=== PATIENT | male | born 1965 | race Native Hawaiian/Other Pacific Islander ===

== ENCOUNTER 2019-08-11 13:32 | Inpatient (IN) | payer OTHER ==
[~2019-08-11] VITALS: Ht 177.8 cm; Wt 73.5 kg
[2019-08-11] MEDS ORDERED: MAGNESIUM SULFATE 2 GM in IV DEXTROSE 5% 100 ML IV ONE (14:00)
[2019-08-11] MEDS ORDERED: MAGNESIUM SULFATE/D5W 200 ML ONE (14:16)
[2019-08-11] MEDS: ALBUTEROL SULFATE 8 GM HFA.AER.AD IH PRN ×3 (14:18→16:38)
[2019-08-11 14:20] LABS: BASOPHILS # (AUTO) 0.1 K/uL (0.0-8.0); BASOPHILS % (AUTO) 1.2 % (0.0-2.0); EOSINOPHILS # (AUTO) 0.5 K/uL (0.0-0.7); EOSINOPHILS % (AUTO) 9.1 % (0.0-7.0); HEMATOCRIT 47.2 % (36.7-47.1); HEMOGLOBIN 15.8 g/dL (12.5-16.3); LYMPHOCYTES # (AUTO) 0.9 K/uL (20.0-40.0); LYMPHOCYTES % (AUTO) 16.1 % (20.5-51.5); MEAN CORPUSCULAR HEMOGLOBIN 31.3 uug (23.8-33.4); MEAN CORPUSCULAR HGB CONC 34 g/dL (32.5-36.3); MEAN CORPUSCULAR VOLUME 93.3 fL (73.0-96.2); MONOCYTES # (AUTO) 0.5 K/uL (2.0-10.0); MONOCYTES % (AUTO) 7.8 % (0.0-11.0); NEUTROPHILS # (AUTO) 3.8 K/uL (1.8-8.9); NEUTROPHILS % (AUTO) 65.8 % (38.5-71.5); PLATELET COUNT (AUTO) 236 K/uL (152-348); RED BLOOD CELL COUNT(AUTO) 5.05 MIL/uL (4.06-5.63); WHITE BLOOD COUNT (AUTO) 5.8 K/uL (3.6-10.2)
[2019-08-11 14:31] LABS: CREATININE 1.2 mg/dL (0.6-1.3)
[2019-08-11 14:37] LABS: POTASSIUM 4.1 mmol/L (3.5-5.1)
[2019-08-11 20:30] VITALS: BP 120/84
[2019-08-11] MEDS ORDERED: ALBUTEROL SULFATE 2.5 MG/3 ML NEBU NEB PRN (20:30)
[2019-08-11] MEDS ORDERED: MORPHINE SULFATE 2 MG/1 ML DISP.SYRIN IV PRN (20:30)
[2019-08-11] MEDS ORDERED: ONDANSETRON 4 MG/2 ML VIAL IV PRN (20:30)
[2019-08-11] MEDS ORDERED: ZOLPIDEM 5 MG TABLET PO PRN (20:30)
[2019-08-11] MEDS ORDERED: ACETAMINOPHEN 325 MG TABLET PO PRN (20:30)
[2019-08-11] MEDS ORDERED: ALBUTEROL SULFATE 8 GM HFA.AER.AD IH PRN (20:54)
[2019-08-11] MEDS: LEVOFLOXACIN 500 MG/D5W 500 MG in PREMIXED 1 EACH IV SCH (21:05)
[2019-08-11] MEDS: methylPREDNISolone SOD SUCC 40 MG/ML VIAL IV SCH (21:57)
[2019-08-12 04:00] VITALS: BP 107/73
[2019-08-12] MEDS: methylPREDNISolone SOD SUCC 40 MG/ML VIAL IV SCH ×3 (05:01→21:30)
[2019-08-12] MEDS: PANTOPRAZOLE SODIUM 40 MG TABLET.DR PO SCH (06:20)
[2019-08-12 06:45] LABS: BASOPHILS % (AUTO) 0.6 % (0.0-2.0); EOSINOPHILS % (AUTO) 0.1 % (0.0-7.0); HEMATOCRIT 48.7 % (36.7-47.1); HEMOGLOBIN 16.4 g/dL (12.5-16.3); LYMPHOCYTES # (AUTO) 0.5 K/uL (20.0-40.0); LYMPHOCYTES % (AUTO) 10.4 % (20.5-51.5); MEAN CORPUSCULAR HEMOGLOBIN 31.4 uug (23.8-33.4); MEAN CORPUSCULAR HGB CONC 34 g/dL (32.5-36.3); MEAN CORPUSCULAR VOLUME 93.4 fL (73.0-96.2); MONOCYTES # (AUTO) 0.1 K/uL (2.0-10.0); NEUTROPHILS # (AUTO) 4.3 K/uL (1.8-8.9); NEUTROPHILS % (AUTO) 87.9 % (38.5-71.5); PLATELET COUNT (AUTO) 258 K/uL (152-348); RED BLOOD CELL COUNT(AUTO) 5.21 MIL/uL (4.06-5.63); WHITE BLOOD COUNT (AUTO) 4.8 K/uL (3.6-10.2)
[2019-08-12 07:13] LABS: BILIRUBIN,TOTAL 0.5 mg/dL (0.2-1.0); CREATININE 1.3 mg/dL (0.6-1.3); MAGNESIUM 2.2 mg/dL (1.8-2.4); PHOSPHOROUS 3.1 mg/dL (2.5-4.9); POTASSIUM 4.5 mmol/L (3.5-5.1); TOTAL PROTEIN, SERUM 7.2 g/dL (6.4-8.2)
[2019-08-12] MEDS: FLUTICASONE/VILANTEROL 1 EACH BLST.W.DEV INH SCH (08:09)
[2019-08-12 12:12] VITALS: BP 121/76
[2019-08-12 16:13] VITALS: BP 142/89
[2019-08-12] MEDS: LEVOFLOXACIN 500 MG/D5W 500 MG in PREMIXED 1 EACH IV SCH (21:30)
[2019-08-12 21:59] VITALS: BP 149/89
[2019-08-13 05:43] VITALS: BP 102/50
[2019-08-13] MEDS: PANTOPRAZOLE SODIUM 40 MG TABLET.DR PO SCH (06:00)
[2019-08-13] MEDS: methylPREDNISolone SOD SUCC 40 MG/ML VIAL IV SCH ×3 (06:00→21:25)
[2019-08-13 06:12] LABS: HEMATOCRIT 44.6 % (36.7-47.1); HEMOGLOBIN 14.7 g/dL (12.5-16.3); LYMPHOCYTES # (AUTO) 0.6 K/uL (20.0-40.0); LYMPHOCYTES % (AUTO) 5.1 % (20.5-51.5); MEAN CORPUSCULAR HGB CONC 33 g/dL (32.5-36.3); MEAN CORPUSCULAR VOLUME 94.3 fL (73.0-96.2); MONOCYTES # (AUTO) 0.3 K/uL (2.0-10.0); MONOCYTES % (AUTO) 2.8 % (0.0-11.0); NEUTROPHILS # (AUTO) 10.6 K/uL (1.8-8.9); NEUTROPHILS % (AUTO) 92.1 % (38.5-71.5); PLATELET COUNT (AUTO) 242 K/uL (152-348); RED BLOOD CELL COUNT(AUTO) 4.73 MIL/uL (4.06-5.63); WHITE BLOOD COUNT (AUTO) 11.5 K/uL (3.6-10.2)
[2019-08-13 06:39] LABS: CREATININE 1.3 mg/dL (0.6-1.3); PHOSPHOROUS 4.1 mg/dL (2.5-4.9); POTASSIUM 4.3 mmol/L (3.5-5.1)
[2019-08-13] MEDS: FLUTICASONE/VILANTEROL 1 EACH BLST.W.DEV INH SCH (08:46)
[2019-08-13] MEDS ORDERED: FLUTICASONE/VILANTEROL 1 EACH BLST.W.DEV INH SCH (10:15)
[2019-08-13 20:00] VITALS: BP 134/87
[2019-08-13] MEDS ORDERED: LEVOFLOXACIN 500 MG TABLET PO SCH (21:00)
[2019-08-13] MEDS ORDERED: ATORVASTATIN 20 MG TABLET PO SCH (21:00)
[2019-08-14 04:22] VITALS: BP 115/68
[2019-08-14] MEDS: PANTOPRAZOLE SODIUM 40 MG TABLET.DR PO SCH (06:29)
[2019-08-14] MEDS: methylPREDNISolone SOD SUCC 40 MG/ML VIAL IV SCH (06:29)
[2019-08-14] MEDS: FLUTICASONE/VILANTEROL 1 EACH BLST.W.DEV INH SCH (08:34)
[2019-08-14 11:36] VITALS: BP 126/75
== END 2019-08-14 14:05 | disposition home or self-care (01) | DRG 202 ==
LOC: ER 13:32 → MEDSURG3 19:41
PROVIDERS: ADMIT Internal Medicine; ATTEND Internal Medicine
DX: J20.8 Acute bronchitis due to other specified organisms (principal); J45.901 Unspecified asthma with (acute) exacerbation; E78.5 Hyperlipidemia, unspecified
CPT/HCPCS: 36415; 71045; 83735; 84100; 85025; 93005; A4663; G0378; J1956; J2920; J3475; J3535; J7050; U0002

== ENCOUNTER 2019-09-01 12:02 | Emergency (ER) | payer OTHER ==
[~2019-09-01] VITALS: Ht 177.8 cm; Wt 73.0 kg
[2019-09-01] MEDS ORDERED: methylPREDNISolone SOD SUCC 125 MG/2 ML VIAL IV ONE (12:45)
[2019-09-01] MEDS ORDERED: levoFLOXacin 500 MG/D5W 100ML PIGGYBACK IV ONE (12:45)
[2019-09-01] MEDS ORDERED: IV NORMAL SALINE 500 ML BAG IV ONE (12:45)
[2019-09-01] MEDS ORDERED: levoFLOXacin 500 MG/D5W 100 ML ONE (13:00)
[2019-09-01] MEDS ORDERED: methylPREDNISolone SOD SUCC 125 MG/2 ML VIAL ONE (13:00)
[2019-09-01 13:02] LABS: BASOPHILS % (AUTO) 1.1 % (0.0-2.0); EOSINOPHILS # (AUTO) 0.4 K/uL (0.0-0.7); EOSINOPHILS % (AUTO) 10.5 % (0.0-7.0); HEMATOCRIT 45.4 % (36.7-47.1); HEMOGLOBIN 15.2 g/dL (12.5-16.3); LYMPHOCYTES # (AUTO) 0.8 K/uL (20.0-40.0); LYMPHOCYTES % (AUTO) 21.2 % (20.5-51.5); MEAN CORPUSCULAR HEMOGLOBIN 31.1 uug (23.8-33.4); MEAN CORPUSCULAR HGB CONC 33 g/dL (32.5-36.3); MEAN CORPUSCULAR VOLUME 93.1 fL (73.0-96.2); MONOCYTES # (AUTO) 0.4 K/uL (2.0-10.0); MONOCYTES % (AUTO) 10.3 % (0.0-11.0); NEUTROPHILS # (AUTO) 2.2 K/uL (1.8-8.9); NEUTROPHILS % (AUTO) 56.9 % (38.5-71.5); PLATELET COUNT (AUTO) 209 K/uL (152-348); RED BLOOD CELL COUNT(AUTO) 4.88 MIL/uL (4.06-5.63); WHITE BLOOD COUNT (AUTO) 3.8 K/uL (3.6-10.2)
[2019-09-01 13:17] LABS: CREATININE 1.3 mg/dL (0.6-1.3)
[2019-09-01 13:31] LABS: BILIRUBIN,DIRECT 0.1 mg/dL (0.0-0.2); BILIRUBIN,TOTAL 0.8 mg/dL (0.2-1.0); TOTAL PROTEIN, SERUM 6.7 g/dL (6.4-8.2)
[2019-09-01 13:35] LABS: FERRITIN 381 ng/mL (26-388); LACTATE DEHYDROGENASE 231 U/L (85-227)
[2019-09-01] MEDS ORDERED: ALBUTEROL SULFATE 2.5 MG/3 ML NEBU NEB ONE (13:45)
[2019-09-01] MEDS ORDERED: IPRATROPIUM BROMIDE 0.5 MG/2.5 ML NEBU NEB ONE (13:45)
[2019-09-01] MEDS ORDERED: IPRATROPIUM BROMIDE 0.5 MG/2.5 ML NEBU ONE (13:50)
[2019-09-01] MEDS ORDERED: ALBUTEROL SULFATE 2.5 MG/ 0.5 ML NEBU ONE (13:51)
--- NOTE | 2019-09-01 14:18 | NUR ---
PT WAS EVALUATED BY DR RAMIREZ. PT WAS D/C'd TO HOME. D/C INSTRUCTIONS GIVEN TO THE PT BY DR RAMIREZ.
[2019-09-01 14:20] VITALS: BP 139/81
== END 2019-09-01 14:21 | disposition home or self-care (01) ==
LOC: ER 12:02
DX: J45.901 Unspecified asthma with (acute) exacerbation (principal); R05 Cough; I51.7 Cardiomegaly; R74.8 Abnormal levels of other serum enzymes
CPT/HCPCS: 36415; 71045; 80048; 80076; 82728; 83615; 83880; 84484; 85025; 87040; 93005; 94640; 96365; 96375; 99285; J1956; J2930; 70030-TC; A4663; J3590; J7030

== ENCOUNTER 2019-09-05 13:23 | Emergency (ER) | payer OTHER ==
[~2019-09-05] VITALS: Ht 177.8 cm; Wt 73.9 kg
[~2019-09-05 13:23] MED LIST: ATOR20TA PO; METH4TAB21 PO; [UNRECOGNIZED DRUG - OTHER]
--- NOTE | 2019-09-05 13:35 | NUR ---
Pt presented to ER c/o SOB due to Asthma attack since this morning. Pt has Hx of asthma and has flare ups during change of weather from cold to hot. Patient is AOx4, speaking in complete sentences. Patient is able to follow /comprehend directions. Gait is stable. No cardiovascular distress noted. Rate and rhythm are regular, mild chest tightness. Wheezing upon auscultation, SOB. PT IN BED AT LOWEST LEVEL W/SIDE RAILS UPX2, CALL LIGHT W/IN REACH,FALL PRECAUTIONS IMPLEMENTED.
--- NOTE | 2019-09-05 13:40 | NUR ---
RESPIRATORY IN ROOM. PT ON NEBULIZER TREATMENT. V/S STABLE.
[2019-09-05] MEDS ORDERED: IPRATROPIUM BROMIDE 0.5 MG/2.5 ML NEBU ONE ×2 (13:43→14:17)
[2019-09-05] MEDS ORDERED: ALBUTEROL SULFATE 2.5 MG/3 ML NEBU ONE (13:43)
[2019-09-05] MEDS ORDERED: IPRATROPIUM BROMIDE 0.5 MG/2.5 ML NEBU NEB ONE ×2 (13:45→14:15)
[2019-09-05] MEDS ORDERED: ALBUTEROL SULFATE 2.5 MG/3 ML NEBU NEB ONE ×2 (13:45→14:15)
[2019-09-05] MEDS ORDERED: predniSONE 20 MG TABLET PO ONE (13:45)
[2019-09-05] MEDS ORDERED: predniSONE 20 MG TABLET ONE (13:47)
[2019-09-05] MEDS ORDERED: ALBUTEROL SULFATE 2.5 MG/ 0.5 ML NEBU NEB ONE (14:15)
[2019-09-05] MEDS ORDERED: ALBUTEROL SULFATE 2.5 MG/ 0.5 ML NEBU ONE (14:17)
--- NOTE | 2019-09-05 15:05 | NUR ---
Pt resting in bed comfortably. Reports having less pressure on his chest.
--- NOTE | 2019-09-05 15:14 | NUR ---
Pt asked for something to eat and drink. Per MD approval , pt received apple sauce and juice.
--- NOTE | 2019-09-05 15:30 | NUR ---
SOB and chest pressure subsided,pt tolerated the nebulizer treatment well.Pt Resting in bed comfortably.
--- NOTE | 2019-09-05 16:00 | NUR ---
Patient discharged to home in stable condition w/ steady gait. Written and verbal after care instructions given w/ prescription.Patient verbalizes understanding of instructions. Stressed follow up or return to ER for worsening s/s.All belongings with patient.
[2019-09-05 16:37] VITALS: BP 110/60
== END 2019-09-05 16:05 | disposition home or self-care (01) ==
LOC: ER 13:27
DX: J45.901 Unspecified asthma with (acute) exacerbation (principal)
CPT/HCPCS: 94644; 94645; 99285; J7512; A4663; J3590

== ENCOUNTER 2019-09-15 13:04 | Emergency (ER) | payer OTHER ==
[~2019-09-15] VITALS: Ht 177.8 cm; Wt 73.5 kg
--- NOTE | 2019-09-15 13:25 | NUR ---
Patient is AOx4, speaking in complete sentences, speech is clear. Patient is able to follow /comprehend directions. Gait is stable. No cardiovascular distress noted. Rate and rhythm are regular. No CP. No respiratory distress noted. Respirations even & unlabored with symmetrical chest rise. No adventitious sounds noted. Pt has hx of asthma, currently c/o "catching his breath" since this morning Patient is on bed. Bed is in lowest position. Siderails are up x 2. Call light within reach. I will continue to monitor accordingly.
[2019-09-15] MEDS ORDERED: predniSONE 50 MG TABLET ONE (13:27)
[2019-09-15] MEDS ORDERED: predniSONE 10 MG TABLET ONE (13:27)
--- NOTE | 2019-09-15 13:29 | NUR ---
pt able to pass swallow eval pt able to tolerate po meds as ordered rt at bedside for breathing treatment
[2019-09-15] MEDS ORDERED: ALBUTEROL SULFATE 2.5 MG/3 ML NEBU NEB ONE (13:30)
[2019-09-15] MEDS ORDERED: ALBUTEROL SULFATE 2.5 MG/3 ML NEBU ONE (13:30)
[2019-09-15] MEDS ORDERED: IPRATROPIUM BROMIDE 0.5 MG/2.5 ML NEBU NEB ONE (13:30)
[2019-09-15] MEDS ORDERED: predniSONE 10 MG TABLET PO ONE (13:30)
[2019-09-15] MEDS ORDERED: IPRATROPIUM BROMIDE 0.5 MG/2.5 ML NEBU ONE (13:31)
--- NOTE | 2019-09-15 14:45 | NUR ---
Patient discharged to home in stable condition. Written and verbal after care instructions given. Patient verbalizes understanding of instructions. Stressed follow up or return to ER for worsening s/s. ambulatory w stable gait all belongings w/ pt
[2019-09-15 14:50] VITALS: BP 120/83
== END 2019-09-15 14:50 | disposition home or self-care (01) ==
LOC: ER 13:04
DX: J45.901 Unspecified asthma with (acute) exacerbation (principal); Z79.51 Long term (current) use of inhaled steroids
CPT/HCPCS: 94640; 99283; J7512 ×2; A4663; J3590

== ENCOUNTER 2019-09-25 15:27 | Emergency (ER) | payer OTHER ==
[~2019-09-25] VITALS: Ht 177.8 cm; Wt 73.0 kg
--- NOTE | 2019-09-25 15:34 | NUR ---
patient in for asthma attack. placed in room and waiting to be seen by physician
--- NOTE | 2019-09-25 15:42 | NUR ---
PATIENT STATES HAS HAD INCREASED FREQUENCY USE OF HIS EMERGENCY INHALER AND STATED THAT PREVIOUSLY HAD TO BE HOSPITALIZED WHEN THAT HAPPENED.
[2019-09-25] MEDS ORDERED: predniSONE 20 MG TABLET ONE (16:00)
[2019-09-25] MEDS ORDERED: IPRATROPIUM BROMIDE 0.5 MG/2.5 ML NEBU NEB ONE (16:00)
[2019-09-25] MEDS ORDERED: predniSONE 20 MG TABLET PO ONE (16:00)
[2019-09-25] MEDS ORDERED: ALBUTEROL SULFATE 2.5 MG/3 ML NEBU NEB ONE (16:00)
[2019-09-25] MEDS ORDERED: ALBUTEROL SULFATE 2.5 MG/3 ML NEBU ONE (16:07)
[2019-09-25] MEDS ORDERED: IPRATROPIUM BROMIDE 0.5 MG/2.5 ML NEBU ONE (16:07)
== END 2019-09-25 18:03 | disposition home or self-care (01) ==
LOC: ER 15:27
DX: J45.901 Unspecified asthma with (acute) exacerbation (principal)
CPT/HCPCS: 71045; 93005; 94644; 99285; J7512; A4663; J3590

== ENCOUNTER 2019-11-12 17:13 | Emergency (ER) | payer OTHER ==
[~2019-11-12] VITALS: Ht 175.3 cm; Wt 73.0 kg
[2019-11-12 18:11] LABS: *BILIRUBIN,URIN NEGATIVE (NEGATIVE); *BLOOD, URINE NEGATIVE (NEGATIVE); *CLARITY,URINE CLEAR (CLEAR); *COLOR,URINE YELLOW (YELLOW); *KETONES,URINE NEGATIVE (NEGATIVE); *UROBILINOGEN,URINE 0.2 E.U./dl (NORMAL); LEUKOCYTE ESTERASE ,URINE NEGATIVE (NEGATIVE); NITRITE, URINE NEGATIVE (NEGATIVE); PH,URINE 5.5 (5.0-8.0); UGLUCOSE NEGATIVE (NEGATIVE)
== END 2019-11-12 18:42 | disposition left against medical advice (07) ==
LOC: ER 17:15
DX: R06.02 Shortness of breath (principal); R10.9 Unspecified abdominal pain
CPT/HCPCS: 71045; A4663

== ENCOUNTER 2020-09-21 15:03 | Emergency (ER) | payer OTHER ==
[~2020-09-21] VITALS: Ht 177.8 cm; Wt 71.7 kg
--- NOTE | 2020-09-21 15:35 | NUR ---
Received pt walking came from home c/o lower back pain and rt leg pain 12/13 no HX trama awake and alert no weeknees seen by DR. Khan inserted angcath # 20 on lt had blood drow and sent to lab dauldid 0.5mg and zofran iv given
[2020-09-21] MEDS ORDERED: HYDROMORPHONE 1 MG/1 ML DISP.SYRIN IV ONE (15:45)
[2020-09-21] MEDS ORDERED: ONDANSETRON 4 MG/2 ML VIAL IV ONE (15:45)
[2020-09-21] MEDS ORDERED: ONDANSETRON 4 MG/2 ML VIAL ONE (16:04)
[2020-09-21] MEDS ORDERED: HYDROMORPHONE 1 MG/1 ML DISP.SYRIN ONE (16:04)
[2020-09-21 16:17] LABS: BASOPHILS % (AUTO) 0.5 % (0.0-2.0); EOSINOPHILS # (AUTO) 0.2 K/uL (0.0-0.7); EOSINOPHILS % (AUTO) 1.9 % (0.0-7.0); HEMOGLOBIN 14.2 g/dL (12.5-16.3); LYMPHOCYTES # (AUTO) 0.5 K/uL (20.0-40.0); LYMPHOCYTES % (AUTO) 5.9 % (20.5-51.5); MEAN CORPUSCULAR HEMOGLOBIN 31.4 uug (23.8-33.4); MEAN CORPUSCULAR HGB CONC 34 g/dL (32.5-36.3); MEAN CORPUSCULAR VOLUME 92.9 fL (73.0-96.2); MONOCYTES # (AUTO) 0.9 K/uL (2.0-10.0); MONOCYTES % (AUTO) 10.8 % (0.0-11.0); NEUTROPHILS # (AUTO) 6.5 K/uL (1.8-8.9); NEUTROPHILS % (AUTO) 80.9 % (38.5-71.5); PLATELET COUNT (AUTO) 252 K/uL (152-348); RED BLOOD CELL COUNT(AUTO) 4.52 MIL/uL (4.06-5.63); WHITE BLOOD COUNT (AUTO) 8.1 K/uL (3.6-10.2)
[2020-09-21 16:22] LABS: CREATININE 1.1 mg/dL (0.6-1.3); POTASSIUM 4.6 mmol/L (3.5-5.1)
--- NOTE | 2020-09-21 16:25 | NUR ---
to ct scan of pelvic with w/o contracet
[2020-09-21 16:35] LABS: BILIRUBIN,DIRECT 0.1 mg/dL (0.0-0.2); BILIRUBIN,TOTAL 0.3 mg/dL (0.2-1.0); TOTAL PROTEIN, SERUM 7.4 g/dL (6.4-8.2)
[2020-09-21] MEDS ORDERED: ALBU8.5H8 IH (17:47)
[2020-09-21] MEDS ORDERED: DULO20CA PO (17:47)
[2020-09-21] MEDS ORDERED: NAPR-1009 PO (17:47)
[2020-09-21] MEDS ORDERED: CYCL5TAB PO (17:47)
--- NOTE | 2020-09-21 19:00 | NUR ---
Recieved report from ALEX Nieves. Pt. [facility] [place]. Pending placement for transfer.
--- NOTE | 2020-09-21 19:38 | NUR ---
HAND OFF TO BROOKE JOHNSON AND SERGIO JOHNSON
--- NOTE | 2020-09-21 22:04 | NUR ---
Spoke with Kandice, the correctional counselor/case manager from the pt.'s insurance who is trying to find a [facility] facility placement for the pt. She requested the covid-19 results to be faxed to her to be provided to the snf prior to arrival which were sent at [id number].
--- NOTE | 2020-09-21 22:40 | NUR ---
Spoke with Kandice the case resolution specialist for this pt. The pt. will be going to [facility] care home [facility]. Kandice is arranging transport. When transport is arranged we will be giving report to [facility] and arranging transfer.
--- NOTE | 2020-09-22 00:20 | NUR ---
[facility] here to transport patient to [facility]. Report given to Nereyda (nursing administrative staff supervisor) at [facility] facility. Vss. All belongings with patient. Transfer praperwork provided to transport tobacco sweeper.
== END 2020-09-22 00:24 ==
LOC: ER 15:03
DX: C34.91 Malignant neoplasm of unspecified part of right bronchus or lung (principal); G89.3 Neoplasm related pain (acute) (chronic); C78.7 Secondary malignant neoplasm of liver and intrahepatic bile duct; C79.51 Secondary malignant neoplasm of bone; R06.02 Shortness of breath; Z20.822 Contact with and (suspected) exposure to COVID-19; J45.909 Unspecified asthma, uncomplicated; M84.48XA Pathological fracture, other site, initial encounter for fracture
CPT/HCPCS: 36415; 71045; 72192; 73551; 80048; 80076; 83880; 84484; 85025; 85379; 85730; 86850; 86900; 86901; 87426; 93005; 96374; 96375; 99285; J1170; J2405; 70030-TC; A4663